=== PATIENT | male | born 1995 ===

== ENCOUNTER → 2019-02-16 | Outpatient (CLI) | payer OTHER ==
[2019-02-16 14:28] LABS: Follicle Stimulating Hormone 3.46 IU/L (1.4-18.1); Leuteinizing Hormone 3.2 IU/L (1.5-9.3)
== END | disposition home or self-care (01) ==
LOC: LAB 12:08
PROVIDERS: ATTEND Urology
DX: E29.1 Testicular hypofunction (principal)
CPT/HCPCS: 83001; 83002